=== PATIENT | female | born 1960 | race Caucasian/White ===

== ENCOUNTER → 2023-07-15 15:47 | Outpatient (REF) | payer BC, SELFPAY | LOC: HWWDC 15:47 | PROVIDERS: ATTENDING PHYSICIAN Physician Assistant Medical | DX: Z12.31 Encounter for screening mammogram for malignant neoplasm of breast (principal) | CPT/HCPCS: 77063; 77067 ==

== ENCOUNTER 2024-07-25 11:29 | Emergency (ER) | payer OTHER, SELFPAY ==
[2024-07-25 11:30] VITALS: BP 169/113
--- NOTE | 2024-07-25 12:36 | ED.GENMED ---
History of Present Illness
General
Chief Complaint: Bowel Problem
Time Seen by Provider: 07/25/24 12:35
History of Present Illness
History of Present Illness:
REVIEW OF OLD RECORDS
- I reviewed the call in note from Cheyanne Medina indicating the patient came in due to constipation and abdominal pain. Review of old records show endometrial ablation in 2013.
Initial evaluation at 12:40 PM
CHIEF COMPLAINT(S)
Constipation and abdominal pain.
HISTORY OF PRESENT ILLNESS
The patient is a 64-year-old female who presented with constipation and abdominal pain. She reported that her last bowel movement was on the and has since been experiencing difficulty with stool passage, describing a sensation that stool is
about to pass but does not. The patient noted a decrease in bowel movements after starting Nystatin for oral thrush, which she received from urgent care following physician assistants advice. She did not feel well while on Nystatin and self-limited
the dose. The patient denies any history of rectal fecal impaction requiring manual disimpaction and reports no current vomiting. She describes the abdominal pain as non-severe but significant during attempts at defecation, leading her to suspect a
need for an enema.
PHYSICAL EXAM
- Abdominal examination revealed diffuse tenderness without severe pain.
- Rectal examination showed detectable balls of stool at the rectum without active peristalsis visible manually.
- Heart and lungs auscultation yielded normal sounds.
- Nursing notes reviewed and vital signs reviewed.
PLAN
- Administer a soap suds enema to alleviate constipation and assist in stool passage.
- Initiate intravenous fluids to address the patients concerns of dehydration and dry mouth potential due to Nystatin use, followed by blood work.
- Reassess post-enema for potential improvement in symptoms and bowel movement relief.
DIFFERENTIAL DIAGNOSIS
The Differential Diagnosis includes, in no particular order and is not limited to:
1. Constipation due to medication side effects
2. Colonic obstruction
3. Fecal impaction
4. Dehydration with associated constipation
5. Diverticulitis
6. Irritable Bowel Syndrome
7. Gastrointestinal dysmotility
8. Electrolyte imbalance
9. Partial bowel obstruction
10. Functional constipation
RADIOLOGY
- Not indicated
EKG
- Not indicated
LABS
- White count and hemoglobin are normal, chemistries unremarkable however sodium slightly low at 130
UPDATE
- 07/25/24 - 15:27
The patient reported receiving an enema with subsequent stool passage, though the exact amount was unspecified. The patient noted soreness, which is considered normal following the procedure. There was a discussion about the completion of blood
tests, with some uncertainty about whether they were performed. The patient initially appeared hesitant about getting blood work done. Assess the need for the tests based on the inputs received. The patient feels improved and is considering
discharge post-enema. Confirmation of blood work completion remains pending.
07/25/24 - 15:31
The patient initially declined blood work due to a dislike of needles, but has now agreed to proceed with a straight stick using a butterfly needle to obtain lab tests. The patient feels dehydrated and consented to the placement of an IV; however,
the prior attempt to insert an IV was unsuccessful due to lack of blood return. A new IV attempt will be made using a 22-gauge needle to administer fluids, as the patient expresses symptoms consistent with dehydration and acknowledges feeling very
dehydrated. Plan to monitor lab results to confirm the need for IV fluids.
07/25/24 - 18:06
Blood work revealed no alarming findings, and kidney function is normal, ruling out severe dehydration. Patient advised to continue using an [id number] stool softener to aid bowel movements. Plan to discharge patient confirmed, as no issues
necessitate further hospital stay.
Phy Exam
Physical Exam
Physical Exam:
See HPI
Course
Orders/Labs/Results
Orders:
Orders
07/25/24 12:46
Enema- Treatment ONCE
Type: Soap Suds
0.9% Sodium Chloride 1000 ml [Nss] 1,000 ml IV BOLUS
07/25/24 15:44
0.9% Sodium Chloride 1000 ml [Nss] 1,000 ml IV BOLUS
07/25/24 15:45
Basic Metabolic Panel Urgent
Complete Blood Count/With Diff Urgent
Abnormal Lab Results
07/25/24
15:45
RBC 4.07 L 10^6/uL
(4.20-5.40)
MCH 34.2 H pg
(27.0-31.0)
MPV 11.2 H fL
(7.4-10.4)
Lymphocytes % 19.8 L %
(20.5-51.1)
Sodium 130 L mmol/L
(135-145)
BUN 6 L mg/dl
(7-17)
Creatinine 0.4 L mg/dL
(0.6-1.0)
Glucose 104 H mg/dl
(70-99)
07/25/24 15:45
07/25/24 15:45
Vital Signs
Initial and Last Documented VS:
Initial Vital Signs
Temp Pulse Resp BP Pulse Ox
37.3 C 108 18 169/113 99
07/25/24 11:30 07/25/24 11:30 07/25/24 11:30 07/25/24 11:30 07/25/24 11:30
Last Documented Vital Signs
Temp Pulse Resp BP Pulse Ox
36.4 C 82 20 131/85 98
07/25/24 18:08 07/25/24 18:08 07/25/24 18:08 07/25/24 18:08 07/25/24 18:08
*Pulse Oximetry
Patient hypoxic: no (99% room air-normal)
*Critical Care Note
Total Time (30-74mins, 75-104mins- exclusive of procedures): Not Applicable
ED Attending Note
-
Portions of this chart may have been created with voice recognition software.� Occasional wrong word or��sound alike� substitutions may have occurred due to the inherent limitations of voice recognition software.
Discharge Plan
Departure
Patient Disposition: Home (Routine Discharge)
Date of Disposition: 07/25/24
Time of Disposition: 18:09
Patient with high blood pressure during this ER visit?: Yes
Discharge Problem:
Fecal impaction in rectum
Instructions: Constipation, Adult (DC), BLOOD PRESSURE
Prescriptions:
No Action
No Current Medications
0
Referrals:
Cheyanne Medina PA [Family Provider, Family Practice]
Activity Restrictions/Additional Instructions:
Basic blood work showed no significant abnormality. Your kidney function is normal. Your white blood cell count and hemoglobin levels are normal. Your blood pressure was somewhat high. We gave you a liter of IV fluids. I disimpacted you and
then we gave you a soapsuds enema. Continue MiraLAX over the next few days. Return here if worse or other concerns.
Interventions
Interventions:
*Risk Screen - Suicide Last Done: 07/25/24 11:30
*General Assessment Last Done: 07/25/24 11:30
*Neglect/Abuse Screening Last Done: 07/25/24 11:30
*ED- Fall Risk Assessment Last Done: 07/25/24 13:04
*ED COVID-19 Vaccine History Last Done: 07/25/24 13:04
QJ-Fvkpcl-Shtgczwutg Assessment Last Done: 07/25/24 13:04
Discharge Date and Time
Print Language: SINHALA
[2024-07-25 13:00] VITALS: BMI 24.3
[2024-07-25 13:04] VITALS: BP 136/81
[2024-07-25] MEDS: NSS 1000 IV (15:55)
[2024-07-25 16:00] VITALS: BP 148/72
[2024-07-25 16:03] LABS: % Basophils 0.6 % (0-2); % Immature Granulocytes 0.2 % (0-0.5); % Lymphocytes 19.8 % (20.5-51.1); % Monocytes 6.8 % (1.7-9.3); % Neutrophils 72.6 % (42.2-75.2); Absolute Basophils 0.1 10^3/uL (0-0.2); Absolute Lymphocytes 1.6 10^3/uL (1.2-3.4); Absolute Monocytes 0.6 10^3/uL (0.1-0.6); Absolute Neutrophils 5.9 10^3/uL (1.4-6.5); Hematocrit 38.7 % (37.0-47.0); Hemoglobin 13.9 g/dL (12.0-16.0); Mean Corp Hgb Conc. 35.9 g/dL (33.0-37.0); Mean Corpuscular Hgb 34.2 pg (27.0-31.0); Mean Corpuscular Volume 95.1 fL (81.0-99.0); Mean Platelet Volume 11.2 fL (7.4-10.4); Nucleated Red Blood Cells % 0 %; Platelet Count 312 10^3/uL (130-400); Red Blood Cell Count 4.07 10^6/uL (4.20-5.40); Red Cell Dist. Width 11.9 % (11.5-14.5); White Blood Cell Count 8.2 10^3/uL (4.8-10.8)
[2024-07-25 16:37] LABS: Blood Urea Nitrogen 6 mg/dl (7-17); Calcium 9.9 mg/dl (8.4-10.2); Carbon Dioxide 24 mmol/L (22-30); Chloride 101 mmol/L (98-107); Estimated Creatinine Clearance 87 ml/min; Glucose 104 mg/dl (70-99); Sodium 130 mmol/L (135-145); eGFR > 60.00
[2024-07-25 18:08] VITALS: BP 131/85
== END 2024-07-25 18:25 | disposition home or self-care (01) ==
LOC: EMR 11:29
PROVIDERS: EMERGENCY PHYSICIAN Emergency Medicine; FAMILY PHYSICIAN Physician Assistant Medical
DX: K56.41 Fecal impaction (principal); R10.9 Unspecified abdominal pain; E86.0 Dehydration
CPT/HCPCS: 96360; 99284; 80048; 85025

== ENCOUNTER → 2024-07-29 15:21 | Outpatient (REF) | payer OTHER, SELFPAY | LOC: HWWDC 15:21 | PROVIDERS: ATTENDING PHYSICIAN Physician Assistant Medical | DX: Z12.31 Encounter for screening mammogram for malignant neoplasm of breast (principal) | CPT/HCPCS: 77063; 77067 ==

== ENCOUNTER 2024-08-10 20:40 | Observation (INO) | payer OTHER, SELFPAY ==
[2024-08-10 14:19] VITALS: BP 165/104
--- NOTE | 2024-08-10 15:31 | ED.GENMED ---
History of Present Illness
General
Chief Complaint: Urinary Symptoms
Source: patient
Exam Limitations: none
Time Seen by Provider: 08/10/24 15:28
Nursing documentation reviewed up to this point in time: agreed with
History of Present Illness
History of Present Illness:
The patient is a 64-year-old female who presents with complaints of constipation. Feels bloated with abdominal discomfort. She reports the sensation of rectal fullness with the inability to evacuate her bowels, despite having bowel movements
yesterday and the day before, which she describes as normal. Additionally, she mentions not sleeping well recently and reports frequent urination last night despite decreased urinary output despite increasing fluid intake and Pedialyte. She also
experienced acid reflux today characterized by regurgitation of acid, She does not take any medication for acid reflux. Denies N/V/D. Denies fever or chills. Denies chest pain or trouble breathing.
Past History
Past History
ED Past Medical History: Hypercholesterolemia
ED Past Surgical History: Orthopedic
Social History
Tobacco: Non-smoker
Alcohol: None
Personal: Single
Living: alone
Employment: Employed (Works from home)
Review of Systems
Review of Systems
Allergies reviewed?: Yes
All Other Systems: ROS reviewed and negative except as documented in HPI and ROS
Constitutional: Denies fever
Respiratory: Denies trouble breathing
Cardiac: Denies chest pain
ABD/GI: Reports abdominal pain and constipated; Denies nausea, vomiting, diarrhea, bloody stools, black stools or anorexia
: Reports frequency; Denies dysuria, flank pain, difficulty voiding or urgency
Musculoskeletal: Reports no symptoms
Skin: Reports no symptoms
Neurological: Reports no symptoms
Phy Exam
Physical Exam
Physical Exam:
GENERAL: No acute distress. A&Ox3.
CONSTITUTIONAL: Afebrile.
EYES: clear, conjunctivae normal
ENMT: moist mucus membranes, Pharynx nl
RESPIRATORY: Regular respirations, nonlabored, lungs clear.
CARDIOVASCULAR: Regular rate and rhythm, no murmurs, no rubs.
GI: Soft, mild tenderness generally about the abdomen, no guarding, normal BS
MUSCULOSKELETAL: Moves with ease. Well perfused.
SKIN: Warm, dry, pink
PSYCH: Anxious mood and affect. Well kept, interactive and appropriate
NEUROLOGIC: Awake, alert and oriented. No focal neurological deficits
Course
Orders/Labs/Results
Orders:
Orders
08/10/24 15:53
Complete Blood Count/With Diff Urgent
Comprehensive Metabolic Panel Urgent
Osmolality, Random Urine Urgent
Date Specimen was Collected: 08/10/24
Time Specimen was Collected: 15:48
Comment: ADD ON
Serum Osmolality Urgent
TSH Urgent
Comment: ADD ON
Urinalysis Reflex To Culture Urgent
Date Specimen was Collected: 08/10/24
Time Specimen was Collected: 15:48
Urine Sodium Urgent
Date Specimen was Collected: 08/10/24
Time Specimen was Collected: 15:48
Comment: ADD ON
08/10/24 17:17
Add On- LAB Urgent
Tests Added?: urine osmolality, urine sodium
08/10/24 17:18
Add On- LAB Urgent
Tests Added?: serum osmolality, TSH
Abnormal Lab Results
08/10/24
15:53
RBC 4.13 L 10^6/uL
(4.20-5.40)
MCH 33.9 H pg
(27.0-31.0)
Absolute Neuts (auto) 7.8 H 10^3/uL
(1.4-6.5)
Absolute Lymphs (auto) 1.1 L 10^3/uL
(1.2-3.4)
Neutrophils % 81.7 H %
(42.2-75.2)
Lymphocytes % 12.0 L %
(20.5-51.1)
Sodium 126 L mmol/L
(135-145)
Carbon Dioxide 21 L mmol/L
(22-30)
BUN 4 L mg/dl
(7-17)
Creatinine 0.4 L mg/dL
(0.6-1.0)
Glucose 104 H mg/dl
(70-99)
Serum Osmolality 259 L mOsm/kg
(275-300)
Urine Osmolality 72 L mOsm/kg
(300-900)
Urine Sodium 21 L mmol/L
(30-90)
08/10/24 15:53
08/10/24 15:53
Vital Signs
Initial and Last Documented VS:
Initial Vital Signs
Temp Pulse Resp BP Pulse Ox
98.2 F 120 20 165/104 98
08/10/24 14:19 08/10/24 14:19 08/10/24 14:19 08/10/24 14:19 08/10/24 14:19
Last Documented Vital Signs
Temp Pulse Resp BP Pulse Ox
98.2 F 106 20 169/88 97
08/10/24 14:19 08/10/24 17:48 08/10/24 17:48 08/10/24 17:48 08/10/24 17:48
MDM/Problems Addressed
Differential Diagnosis Includes:
Constipation, UTI, anxiety
MDM/Problems Addressed:
The patient is a 64-year-old female who presents with complaints of constipation. Feels bloated with abdominal discomfort. She reports the sensation of rectal fullness with the inability to evacuate her bowels, despite having bowel movements
yesterday and the day before, which she describes as normal. Additionally, she mentions not sleeping well recently and reports frequent urination last night despite decreased urinary output despite increasing fluid intake and Pedialyte. She also
experienced acid reflux today characterized by regurgitation of acid, She does not take any medication for acid reflux. Denies N/V/D. Denies fever or chills. Denies chest pain or trouble breathing.
One small ball of fecal material proximally in the rectal vault otherwise the vault is empty. No fecal impaction.
Problem list:
Acute Problems:
- Constipation
- Dyspepsia
- Frequency of urination
4:45 PM:
CBC with no significant abnormality
CMP: Sodium 126.
U/A neg
In to reevaluate patient. Her abdomen is soft, nontender, no indication for imaging at this time
*Pulse Oximetry
SaO2: 98
Oxygen Mode of Delivery: Room air
Patient hypoxic: not evaluated
*Critical Care Note
Total Time (30-74mins, 75-104mins- exclusive of procedures): Not Applicable
ED Attending Note
-
Portions of this chart may have been created with voice recognition software.� Occasional wrong word or��sound alike� substitutions may have occurred due to the inherent limitations of voice recognition software.
Discharge Plan
Departure
Patient Disposition: Admit
Date of Disposition: 08/10/24
Time of Disposition: 17:39
Admit to: Med/Surg
Presentation/result/management discussed w/ accepting MD/DO: Hospitalist
Condition: Fair
Discharge Problem:
Acute hyponatremia
Prescriptions:
No Action
rosuvastatin [Crestor] 10 mg Tablet
10 mg PO QPM
melatonin 5 mg Tablet
5 mg PO HS
Referrals:
Cheyanne Medina PA [Family Provider, Family Practice]
Interventions
Interventions:
*Risk Screen - Suicide Last Done: 08/10/24 14:19
*General Assessment Last Done: 08/10/24 14:19
*Neglect/Abuse Screening Last Done: 08/10/24 14:19
*ED COVID-19 Vaccine History Last Done: 08/10/24 14:19
ED-Female Genitourinary Assessment Last Done: 08/10/24 15:56
Discharge Date and Time
Print Language: LEBANESE
[2024-08-10 16:01] LABS: Hematocrit 39.4 % (37.0-47.0); Hemoglobin 14.0 g/dL (12.0-16.0); Mean Corp Hgb Conc. 35.5 g/dL (33.0-37.0); Mean Corpuscular Volume 95.4 fL (81.0-99.0); Nucleated Red Blood Cells % 0 %; Platelet Count 305 10^3/uL (130-400); Red Cell Dist. Width 12.0 % (11.5-14.5)
[2024-08-10 16:03] LABS: Urine Character Clear (Clear)
[2024-08-10 16:13] LABS: ALT (SGPT) 16 U/L (0-35); AST (SGOT) 22 U/L (14-36); Albumin 4.6 g/dl (3.5-5.0); Alkaline Phosphatase 86 U/L (38-126); Blood Urea Nitrogen 4 mg/dl (7-17); Calcium 9.4 mg/dl (8.4-10.2); Carbon Dioxide 21 mmol/L (22-30); Chloride 98 mmol/L (98-107); Glucose 104 mg/dl (70-99); Potassium 3.9 mmol/L (3.5-5.1); Sodium 126 mmol/L (135-145); Total Protein 7.0 g/dl (6.3-8.2); eGFR > 60.00
[2024-08-10 17:48] VITALS: BP 169/88
[2024-08-10 18:35] LABS: TSH 1.89 uIU/ml (0.47-4.68)
--- NOTE | 2024-08-10 20:02 | HPS.HSE ---
Family Physician
-
Family Physician: Cheyanne Medina
Chief Complaint
-
urinating less
History of Present Illness
64-year-old female past medical history of hypercholesteremia, presenting decreased urination last night. She states that she normally drinks the equivalent of 4-5 bottles of 16 ounce bottles of fluids per day because she feels thirsty. She has
been doing this for quite a while. Yesterday during the night she noticed decreased urination which concerned her. Today she took Pedialyte and now is peeing adequate quantity.
She also complains of some abdominal bloating and concerned about constipation. Her last bowel movement may have been yesterday or the day before. She has taken MiraLAX in the past before for constipation. Denies nausea or vomiting.
Denies smoking or alcohol use.
Medical History
Past Medical History
Past Medical History: Reports Other (hypercholesteremia)
Past Surgical History: Reports None
Social History
Tobacco: Non-smoker
Alcohol: None
Drug: None
Family History
Family History: Not pertinent
Allergies / Home Medications
Allergies reflects when Allergies were last updated in [employer].
Home Medications with original date entered in [employer] [facility]
Allergy/Medication List:
Allergies
Allergy/AdvReac Type Severity Reaction Status Date / Time
Sulfa (Sulfonamide Allergy pain in Verified 07/25/24 11:32
Antibiotics) abdomen
Home Medications
melatonin 5 mg tablet 5 mg PO HS 08/10/24
rosuvastatin 10 mg tablet (Crestor) 10 mg PO QPM 08/10/24
Review of Systems
-
History Source: Patient
A 12 point ROS was completed and negative except as noted: Yes
Constitutional: Reports No Symptoms
EENT: Reports No Symptoms
Respiratory: Reports No Symptoms
Cardiac: Reports No Symptoms
Abdomen/GI: Reports No Symptoms
: Reports No Symptoms
Musculoskeletal: Reports No Symptoms
Skin: Reports No Symptoms
Neurological: Reports No Symptoms
Endocrine: Reports No Symptoms
Hematologic/Lymphatic: Reports No Symptoms
Psych: Reports No Symptoms
Physical Exam
Vital Signs
Vital Signs
Temp Pulse Resp BP Pulse Ox
98.2 F 106 20 169/88 97
08/10/24 14:19 08/10/24 17:48 08/10/24 17:48 08/10/24 17:48 08/10/24 17:48
Physical Exam
General: Well Developed, Well Nourished and No Apparent Distress
HEENT: NormoCephalic, Moist mucous membranes and Atraumatic
Respiratory: Clear
Cardiac: S1/S2 and Regular Rhythm; No Murmur or Rub
GI: Soft, Non Tender, Non Distended and Normal Bowel Sounds; No Organomegaly
Rectal: Deferred by Provider
Musculoskeletal: No Clubbing, No Cyanosis and No Edema
Skin: No Rash
Neuro: Nonfocal/grossly intact
Laboratory Results
-
08/10/24 15:53
08/10/24 15:53
Laboratory Results
Total Bilirubin 0.5 mg/dl (0.2-1.3) 08/10/24 15:53
AST 22 U/L (14-36) 08/10/24 15:53
ALT 16 U/L (0-35) 08/10/24 15:53
Alkaline Phosphatase 86 U/L (38-126) 08/10/24 15:53
Data Reviewed
-
Lab Data: Labs Reviewed by me
Old Records: Reviewed
Impression/Plan
-
IMPRESSION:
PLAN:
# Mild constipation
- Abdominal examination is benign
- Start MiraLAX prn
# Worsening of chronic hyponatremia secondary to polydipsia
-Sodium of 126 from 130 previously
- Urine sodium of 21, urine osmolality 72 suggestive of polydipsia
- 40 ounce fluid restriction
#Transient decreased urination
-UA no infection
-improved
Hypercholesterolemia
- Continue statin
Full code
DVT prophylaxis�heparin
Regular diet
[2024-08-10 22:13] VITALS: BP 127/78; BMI 23.8
[2024-08-10] MEDS: MELATONIN 5 MG PO (22:28)
--- NOTE | 2024-08-10 22:30 | PTCARENOTE ---
Patient arrived from the ED via stretcher. Patient ambulated into the room. AAOx3, VSS. Patient has no complaints of pain. Oriented to the room. Educated on plan of care and medications as well as fluid restriction. Call au is within reach.
[2024-08-11 06:42] LABS: Hematocrit 39.8 % (37.0-47.0); Hemoglobin 13.5 g/dL (12.0-16.0); Mean Corp Hgb Conc. 33.9 g/dL (33.0-37.0); Mean Corpuscular Volume 98.5 fL (81.0-99.0); Nucleated Red Blood Cells % 0 %; Platelet Count 276 10^3/uL (130-400); Red Cell Dist. Width 12.4 % (11.5-14.5)
--- NOTE | 2024-08-11 07:10 | W.PN.HOSP.TC ---
Today's Communication/Plan
-
Discharge today
Assessment / Plan
Assessment / Plan
Physical Exam
General: Well Developed, Well Nourished and No Apparent Distress
HEENT: Normocephalic, Moist mucous membranes and Atraumatic
Respiratory: Clear to Auscultation Bilaterally
Cardiac: S1/S2 and Regular Rhythm
GI: Soft, Non Tender, Non Distended and Normal Bowel Sounds
Musculoskeletal: No Cyanosis and No Edema
Skin: Warm. Dry.
Neuro: AAOx3. Cranial Nerves 2 through 12 grossly intact bilaterally. Nonfocal/grossly intact bilaterally.
Assessment/Plan
64-year-old female past medical history of hypercholesteremia, presenting with decreased urination since last night. She stateed that she normally drinks the equivalent of 4-5 bottles of 16 ounce bottles of fluids per day because she feels thirsty.
She has been doing this for quite a while. On 08/09/24 to 08/10/24 during the night she noticed decreased urination which concerned her. On 08/10/24 she took Pedialyte and then started to urinate with adequate quantity.
She also complains of some abdominal bloating and concerned about constipation. Her last bowel movement may have been yesterday or the day before. She has taken MiraLAX in the past before for constipation. Denied nausea or vomiting.
Denies smoking or alcohol use.
# Mild constipation
- Abdominal examination is benign
- Start MiraLAX prn
- Patient says she wants to be discharged today and will take Miralax at home, and she currently denied any abdominal pain and is tolerating PO intake
# Worsening of chronic hyponatremia secondary to polydipsia - HYPONATREMIA RESOLVED
-Sodium of 126 from 130 previously
- Urine sodium of 21, urine osmolality 72 suggestive of polydipsia
- 40 ounce PO fluid restriction
#Transient decreased urination
-UA no infection
-improved
Hypercholesterolemia
- Continue statin
Full code
DVT prophylaxis�heparin
Regular diet
More than 30 minutes spent in discharge including
Final examination of the patient
Summarizing hospital stay
Instructions for continuing care to all relevant caregivers
Preparation of discharge records, prescriptions, and referral forms
Total time spent (in minutes): 36
Anticipated Discharge: Today
Subjective/Interval History
-
Date of Service: August 11, 2024
Patient was seen and examined. She denied any symptoms or complaints. She was ambulating around the unit without any issues. She stated that she would like to go home today.
Objective Data
-
Labs:
Laboratory Results
08/11/24
06:28
WBC 4.1 L
Hgb 13.5
Hct 39.8
Plt Count 276
Sodium Pending
Potassium Pending
Chloride Pending
Carbon Dioxide Pending
BUN Pending
Creatinine Pending
Glucose Pending
Calcium Pending
Total Bilirubin Pending
AST Pending
ALT Pending
Alkaline Phosphatase Pending
Vital Signs:
Vital Signs
Temp Pulse Resp BP Pulse Ox
98.4 F 72 18 127/78 100
08/10/24 22:13 08/10/24 22:13 08/10/24 22:13 08/10/24 22:13 08/10/24 22:30
[2024-08-11 07:28] LABS: ALT (SGPT) 14 U/L (0-35); AST (SGOT) 20 U/L (14-36); Albumin 3.9 g/dl (3.5-5.0); Alkaline Phosphatase 65 U/L (38-126); Blood Urea Nitrogen 6 mg/dl (7-17); Calcium 9.2 mg/dl (8.4-10.2); Carbon Dioxide 24 mmol/L (22-30); Chloride 109 mmol/L (98-107); Estimated Creatinine Clearance 84 ml/min; Glucose 91 mg/dl (70-99); Potassium 4.7 mmol/L (3.5-5.1); Sodium 137 mmol/L (135-145); Total Protein 6.2 g/dl (6.3-8.2); eGFR > 60.00
[2024-08-11 07:56] VITALS: BP 120/78
== END 2024-08-11 13:13 | disposition home or self-care (01) ==
LOC: 4 EAST ACU 20:40
PROVIDERS: Registered Nurse; ADMITTING PHYSICIAN Hospitalist; ATTENDING PHYSICIAN Hospitalist; EMERGENCY PHYSICIAN Student in an Organized Health Care Education/Training Program; FAMILY PHYSICIAN Physician Assistant Medical
DX: K59.00 Constipation, unspecified (principal); R35.0 Frequency of micturition; E78.00 Pure hypercholesterolemia, unspecified; E87.1 Hypo-osmolality and hyponatremia; R63.1 Polydipsia
CPT/HCPCS: 80053; 81003; 83930; 83935; 84300; 84443; 85025; 99285

== ENCOUNTER 2024-08-16 14:52 | Emergency (ER) | payer OTHER, SELFPAY ==
[2024-08-16 14:57] VITALS: BP 159/89
[2024-08-16 17:38] VITALS: BP 161/98
[2024-08-16 18:53] VITALS: BP 146/92
[2024-08-16 18:56] VITALS: BMI 24.2
--- NOTE | 2024-08-16 19:01 | ED.GENMED ---
History of Present Illness
General
Chief Complaint: Bowel Problem
Source: patient
Exam Limitations: none
Time Seen by Provider: 08/16/24 18:51
Nursing documentation reviewed up to this point in time: agreed with
History of Present Illness
History of Present Illness:
64 yo female history of HLD, GERD, anxiety/depression presents for constipation, no BM 4 days, also feels dehydrated as she is on fluid restriction of 48 oz daily after being admitted for hyponatremia 6 days ago and having decreased urine output.
Took Miralax 3 days ago.
Discharge plan from that admission reviewed and diagnosed with hyponatremia due to polydipsia
She saw her PCP today for f/u and had out pt lab work but we have no way to get results as it it after hours
Past History
Past History
ED Past Medical History: Hypercholesterolemia and Psychiatric (anxiety)
ED Past Surgical History: Orthopedic
Social History
Tobacco: Non-smoker
Alcohol: None
Personal: Single
Living: alone
Employment: Employed (Works from home)
Review of Systems
Review of Systems
Allergies reviewed?: Yes
All Other Systems: ROS reviewed and negative except as documented in HPI and ROS
ABD/GI: Reports constipated; Denies abdominal pain, nausea, vomiting, diarrhea or anorexia
: Reports other (states decreased urine output); Denies dysuria, frequency, flank pain, difficulty voiding or urgency
Phy Exam
Physical Exam
Physical Exam:
GENERAL: No acute distress. A&Ox3.
CONSTITUTIONAL: Afebrile.
EYES: clear, conjunctivae normal
ENMT: moist mucus membranes, Pharynx nl
RESPIRATORY: Regular respirations, nonlabored, lungs clear.
CARDIOVASCULAR: Regular rate and rhythm, no murmurs, no rubs.
GI: Soft, nontender, normal BS
Rectal: No fecal impaction, palpable stool in proximal rectal vault
MUSCULOSKELETAL: Moves with ease. Well perfused.
SKIN: Warm, dry, pink
PSYCH: Anxious mood and affect. Well kept, interactive and appropriate
NEUROLOGIC: Awake, alert and oriented. No focal neurological deficits
Course
Orders/Labs/Results
Orders:
Orders
08/16/24 19:10
Enema- Treatment ONCE
Type: Milk of Molasses
08/16/24 19:23
Complete Blood Count/With Diff Urgent
Comprehensive Metabolic Panel Urgent
Abnormal Lab Results
08/16/24
19:23
RBC 4.08 L 10^6/uL
(4.20-5.40)
MCH 34.6 H pg
(27.0-31.0)
Lymphocytes % 17.9 L %
(20.5-51.1)
Sodium 133 L mmol/L
(135-145)
Carbon Dioxide 19 L mmol/L
(22-30)
Creatinine 0.5 L mg/dL
(0.6-1.0)
Glucose 110 H mg/dl
(70-99)
08/16/24 19:23
08/16/24 19:23
Vital Signs
Initial and Last Documented VS:
Initial Vital Signs
Temp Pulse Resp BP Pulse Ox
98.2 F 119 16 159/89 98
08/16/24 14:57 08/16/24 14:57 08/16/24 14:57 08/16/24 14:57 08/16/24 14:57
Last Documented Vital Signs
Temp Pulse Resp BP Pulse Ox
98.2 F 95 20 146/92 98
08/16/24 14:57 08/16/24 18:56 08/16/24 18:56 08/16/24 18:53 08/16/24 19:02
MDM/Problems Addressed
Differential Diagnosis Includes:
Constipation, fecal impaction, dehydration
MDM/Problems Addressed:
64 yo female history of HLD, GERD, anxiety/depression presents for constipation, no BM 4 days, also feels dehydrated as she is on fluid restriction of 48 oz daily after being admitted for hyponatremia 6 days ago and having decreased urine output.
Took Miralax 3 days ago.
Discharge plan from that admission reviewed and diagnosed with hyponatremia due to polydipsia
She saw her PCP today for f/u and had out pt lab work but we have no way to get results as it it after hours
NAD
After milk molasses enema, large bowel movement, feeling better
CBC normal
CMP with no clinically significant abnormality
No sign of dehydration
Patient stable for discharge
*Pulse Oximetry
SaO2: 98
Oxygen Mode of Delivery: Room air
Patient hypoxic: not evaluated
*Critical Care Note
Total Time (30-74mins, 75-104mins- exclusive of procedures): Not Applicable
ED Attending Note
-
Portions of this chart may have been created with voice recognition software.� Occasional wrong word or��sound alike� substitutions may have occurred due to the inherent limitations of voice recognition software.
Discharge Plan
Departure
Patient Disposition: Home (Routine Discharge)
Date of Disposition: 08/16/24
Time of Disposition: 20:27
Patient with high blood pressure during this ER visit?: No
Condition: Good
Discharge Problem:
Constipation
Instructions: Polyethylene Glycol 3350, Constipation, Adult (DC)
Prescriptions:
No Action
rosuvastatin [Crestor] 10 mg Tablet
10 mg PO QPM
melatonin 5 mg Tablet
5 mg PO HS
polyethylene glycol 3350 17 gram Powder In Packet
17 g PO DAILYPRN PRN (Reason: constipation) Qty: 30 0RF
Referrals:
Cheyanne Medina PA [Family Provider, Family Practice] - Keep scheduled appt
Activity Restrictions/Additional Instructions:
As we discussed, your sodium is 133, your blood work is normal, no sign of dehydration.
Take MiraLAX daily until you have regular bowel movements daily or every other day and then you can take it every other day or as needed
Get a stool softener from the pharmacy, Colace is 1 example and take it daily
Keep your follow-up appointments with your doctor
Interventions
Interventions:
*Risk Screen - Suicide Last Done: 08/16/24 14:57
*Neglect/Abuse Screening Last Done: 08/16/24 14:57
[facility] Assessment Last Done: 08/16/24 18:56
Discharge Date and Time
Print Language: YORUBA
[2024-08-16 19:32] LABS: Hematocrit 39.4 % (37.0-47.0); Hemoglobin 14.1 g/dL (12.0-16.0); Mean Corp Hgb Conc. 35.8 g/dL (33.0-37.0); Mean Corpuscular Volume 96.6 fL (81.0-99.0); Nucleated Red Blood Cells % 0 %; Platelet Count 315 10^3/uL (130-400); Red Cell Dist. Width 12.1 % (11.5-14.5)
[2024-08-16 19:52] LABS: ALT (SGPT) 17 U/L (0-35); AST (SGOT) 24 U/L (14-36); Albumin 4.9 g/dl (3.5-5.0); Alkaline Phosphatase 88 U/L (38-126); Blood Urea Nitrogen 12 mg/dl (7-17); Calcium 9.8 mg/dl (8.4-10.2); Carbon Dioxide 19 mmol/L (22-30); Chloride 102 mmol/L (98-107); Estimated Creatinine Clearance 84 ml/min; Glucose 110 mg/dl (70-99); Potassium 3.7 mmol/L (3.5-5.1); Sodium 133 mmol/L (135-145); Total Protein 7.3 g/dl (6.3-8.2); eGFR > 60.00
== END 2024-08-16 20:54 | disposition home or self-care (01) ==
LOC: EMR 14:52
PROVIDERS: Registered Nurse; EMERGENCY PHYSICIAN Emergency Medicine; FAMILY PHYSICIAN Physician Assistant Medical
DX: K59.00 Constipation, unspecified (principal); E78.00 Pure hypercholesterolemia, unspecified; K21.9 Gastro-esophageal reflux disease without esophagitis; E87.1 Hypo-osmolality and hyponatremia
CPT/HCPCS: 99283; 80053; 85025